=== PATIENT | female | born 1985 | race Caucasian/White ===

== ENCOUNTER 2016-08-05 17:55 | Emergency (ER) | payer MEDICAID, OTHER ==
[~2016-08-05] VITALS: Ht 165.1 cm; Wt 88.0 kg
[~2016-08-05 17:55] MED LIST: LITH300T3 PO; SERT100T12 PO
[2016-08-05] MEDS ORDERED: LURA40 PO (18:04)
[2016-08-05 18:59] LABS: BASOPHILS % (AUTO) 0.8 % (0.0-2.0); EOSINOPHILS % (AUTO) 0.7 % (1.0-6.0); HEMATOCRIT 39.2 % (36-46); HEMOGLOBIN 12.9 g/dL (12.0-16.0); LYMPHOCYTES # (AUTO) 2.2 K/uL (1.0-4.8); LYMPHOCYTES % (AUTO) 19.8 % (22.0-44.0); MEAN CORPUSCULAR HEMOGLOBIN 30.1 pg (26.0-34.0); MEAN CORPUSCULAR HGB CONC 32.8 G/dL (31.0-37.0); MEAN CORPUSCULAR VOLUME 92 fL (80-100); MONOCYTES # (AUTO) 0.6 K/uL (0.1-1.0); MONOCYTES % (AUTO) 5.8 % (2.0-9.0); NEUTROPHILS # (AUTO) 8.1 K/uL (1.8-7.7); NEUTROPHILS % (AUTO) 72.9 % (40.0-70.0); PLATELET COUNT (AUTO) 354 K/uL (150-450); RED BLOOD CELL COUNT(AUTO) 4.27 MIL/uL (4.00-5.20); RED CELL DISTRIBUTION WIDTH 13.5 % (11.5-14.5); WHITE BLOOD COUNT (AUTO) 11.1 K/uL (4.5-11.0)
[2016-08-05 19:09] LABS: ANION GAP 8 mmol/L (8-16); CALCIUM, TOTAL 8.3 mg/dL (8.8-10.5); CARBON DIOXIDE 27 mmol/L (22-29); CHLORIDE 103 mmol/L (98-107); CREATININE 0.74 mg/dL (0.60-1.30); GLOMERULAR FILTR. RATE CALC > 60 mL/min (>60); POTASSIUM 3.8 mmol/L (3.5-5.1); SODIUM SERUM 138 mmol/L (136-145); UREA NITROGEN, BLOOD 6 mg/dL (7-18)
[2016-08-05 19:16] LABS: ALANINE AMINOTRANSFERASE 13 U/L (12-78); ALBUMIN 3.6 g/dL (3.4-5.0); ASPARTATE AMINOTRANSFERASE 12 U/L (15-37); BILIRUBIN,TOTAL 0.6 mg/dL (0.1-1.0); TOTAL PROTEIN, SERUM 7.6 g/dL (6.4-8.2)
[2016-08-05 20:44] VITALS: BP 121/67
== END 2016-08-05 20:57 | disposition home or self-care (01) ==
LOC: EMS 17:56
DX: F31.9 Bipolar disorder, unspecified (principal); J45.909 Unspecified asthma, uncomplicated
CPT/HCPCS: 36415; 80053; 80307; 85025; 99285; G0480

== ENCOUNTER 2016-11-27 16:36 | Inpatient (IN) | payer MEDICAID, OTHER ==
[~2016-11-27] VITALS: Ht 157.5 cm; Wt 88.4 kg
[~2016-11-27 16:36] MED LIST changes: +LURA40 PO
[2016-11-27] MEDS ORDERED: OXCA300T PO (16:50)
[2016-11-27] MEDS ORDERED: LEVO1TAB58 PO (16:50)
[2016-11-27] MEDS ORDERED: SPIR25 PO (16:50)
[2016-11-27 17:25] LABS: BASOPHILS % (AUTO) 1.1 % (0.0-2.0); EOSINOPHILS # (AUTO) 0.06 K/uL (0.00-0.70); EOSINOPHILS % (AUTO) 0.61 % (1.0-6.0); HEMATOCRIT 38.1 % (36-46); HEMOGLOBIN 12.5 g/dL (12.0-16.0); LYMPHOCYTES # (AUTO) 1.7 K/uL (1.0-4.8); LYMPHOCYTES % (AUTO) 18.7 % (22.0-44.0); MEAN CORPUSCULAR HEMOGLOBIN 30.3 pg (26.0-34.0); MEAN CORPUSCULAR HGB CONC 32.8 G/dL (31.0-37.0); MEAN CORPUSCULAR VOLUME 92 fL (80-100); MONOCYTES # (AUTO) 0.6 K/uL (0.1-1.0); MONOCYTES % (AUTO) 6.8 % (2.0-9.0); NEUTROPHILS # (AUTO) 6.6 K/uL (1.8-7.7); NEUTROPHILS % (AUTO) 72.9 % (40.0-70.0); PLATELET COUNT (AUTO) 283 K/uL (150-450); RED BLOOD CELL COUNT(AUTO) 4.13 MIL/uL (4.00-5.20); RED CELL DISTRIBUTION WIDTH 13.4 % (11.5-14.5); WHITE BLOOD COUNT (AUTO) 9.1 K/uL (4.5-11.0)
[2016-11-27 17:26] LABS: ANION GAP 9 mmol/L (8-16); CALCIUM, TOTAL 8.5 mg/dL (8.8-10.5); CARBON DIOXIDE 25 mmol/L (22-29); CHLORIDE 101 mmol/L (98-107); CREATININE 0.82 mg/dL (0.60-1.30); GLOMERULAR FILTR. RATE CALC > 60 mL/min (>60); POTASSIUM 3.7 mmol/L (3.5-5.1); SODIUM SERUM 135 mmol/L (136-145); UREA NITROGEN, BLOOD 11 mg/dL (7-18)
[2016-11-27 17:32] LABS: ALANINE AMINOTRANSFERASE 27 U/L (12-78); ALBUMIN 3.6 g/dL (3.4-5.0); ASPARTATE AMINOTRANSFERASE 23 U/L (15-37); BILIRUBIN,TOTAL 0.3 mg/dL (0.1-1.0); TOTAL PROTEIN, SERUM 7.8 g/dL (6.4-8.2)
[2016-11-27] MEDS ORDERED: ZOLPIDEM TARTRATE 10 MG TABLET PO PRN (19:15)
[2016-11-27] MEDS ORDERED: LORazepam 2 MG TABLET PO PRN (19:15)
[2016-11-27] MEDS ORDERED: HALOPERIDOL 5 MG TABLET PO PRN (19:15)
[2016-11-27 19:33] LABS: CHOL/HDL RATIO 5.1 (3.9-5.7)
[2016-11-27 20:29] VITALS: BP 124/73
[2016-11-28] MEDS ORDERED: ALBUTEROL SULFATE HFA 90 MCG/PUFF 8 GM INHALER IH PRN (08:15)
[2016-11-28] MEDS ORDERED: LOPERAMIDE HCL 2 MG CAPSULE PO PRN (08:15)
[2016-11-28] MEDS ORDERED: MAG HYDROX/AL HYDROX/SIMETH ES 30 ML SUSPENSION UDCUP PO PRN (08:15)
[2016-11-28] MEDS ORDERED: ONDANSETRON HCL 4 MG TABLET PO PRN (08:15)
[2016-11-28] MEDS ORDERED: BENZOCAINE/MENTHOL LOZENGE MM PRN (08:15)
[2016-11-28] MEDS ORDERED: MAGNESIUM HYDROXIDE SUSPENSION 30 ML UDCUP PO PRN (08:15)
[2016-11-28] MEDS ORDERED: IBUPROFEN 600 MG TABLET PO PRN (08:15)
[2016-11-28] MEDS ORDERED: ACETAMINOPHEN 325 MG TABLET PO PRN (08:15)
[2016-11-28] MEDS ORDERED: CloNIDine HCL 0.1 MG TABLET PO PRN (08:15)
[2016-11-28] MEDS ORDERED: BACITRACIN 28.4 GM OINTMENT TP PRN (08:15)
[2016-11-28] MEDS ORDERED: PETROLATUM,WHITE 71 GM JELLY TP PRN (08:15)
[2016-11-28] MEDS ORDERED: BENZOCAINE/MENTHOL LOZENGE [8 LOZENGES/PACKET] MM PRN (08:30)
[2016-11-28 09:46] VITALS: BP 115/75
[2016-11-28] MEDS: FISH OIL/OMEGA-3 FATTY ACIDS 500 MG CAPSULE PO SCH (11:23)
[2016-11-28] MEDS: SPIRONOLACTONE 25 MG TABLET PO SCH (11:23)
[2016-11-28 16:15] VITALS: BP 114/76
[2016-11-29 06:51] LABS: THYROID STIMULATING HORMONE 2.62 uIU/mL (0.36-3.74)
[2016-11-29 08:36] VITALS: BP 124/72
[2016-11-29] MEDS: CITALOPRAM HYDROBROMIDE 20 MG TABLET PO SCH (09:18)
[2016-11-29] MEDS: SPIRONOLACTONE 25 MG TABLET PO SCH (09:19)
[2016-11-29] MEDS: FISH OIL/OMEGA-3 FATTY ACIDS 500 MG CAPSULE PO SCH (09:19)
[2016-11-29 16:15] VITALS: BP 112/78
[2016-11-30] MEDS ORDERED: CITA20TA9 PO (08:02)
[2016-11-30] MEDS ORDERED: OMEG-12 PO (08:04)
[2016-11-30] MEDS: FISH OIL/OMEGA-3 FATTY ACIDS 500 MG CAPSULE PO SCH (09:02)
[2016-11-30] MEDS: SPIRONOLACTONE 25 MG TABLET PO SCH (09:02)
[2016-11-30] MEDS: CITALOPRAM HYDROBROMIDE 20 MG TABLET PO SCH (09:03)
== END 2016-11-30 10:30 | disposition home or self-care (01) | DRG 754 ==
LOC: EMS 16:39 → 3EI 20:02
PROVIDERS: ADMIT Psychiatry & Neurology Psychiatry; ATTEND Psychiatry & Neurology Psychiatry
DX: F32.9 Major depressive disorder, single episode, unspecified (principal); E87.1 Hypo-osmolality and hyponatremia; R45.851 Suicidal ideations; E83.51 Hypocalcemia; F10.10 Alcohol abuse, uncomplicated; E78.5 Hyperlipidemia, unspecified; E66.9 Obesity, unspecified; J45.909 Unspecified asthma, uncomplicated; N92.6 Irregular menstruation, unspecified; L68.0 Hirsutism
CPT/HCPCS: 82306; 84295; 84443; 99285; G0480

== ENCOUNTER 2018-02-09 14:27 | Inpatient (IN) | payer MEDICAID ==
[~2018-02-09] VITALS: Ht 165.1 cm; Wt 78.9 kg
[~2018-02-09 14:27] MED LIST changes: +CITA-106 PO; -LITH300T3 PO; -LURA40 PO; +OMEG-12 PO; -SERT100T12 PO; +SPIR25 PO
[2018-02-09] MEDS ORDERED: NATA300V2 IV (14:40)
[2018-02-09] MEDS ORDERED: GABA-529 PO (14:40)
[2018-02-09] MEDS ORDERED: FLUO-191 PO (14:40)
[2018-02-09 15:06] LABS: BASOPHILS % (AUTO) 0.7 % (0.0-2.0); EOSINOPHILS % (AUTO) 2.4 % (1.0-6.0); HEMATOCRIT 38.8 % (36-46); HEMOGLOBIN 13.2 g/dL (12.0-16.0); LYMPHOCYTES # (AUTO) 3.6 K/uL (1.0-4.8); LYMPHOCYTES % (AUTO) 38.6 % (22.0-44.0); MEAN CORPUSCULAR HEMOGLOBIN 30.5 pg (26.0-34.0); MEAN CORPUSCULAR HGB CONC 33.9 G/dL (31.0-37.0); MEAN CORPUSCULAR VOLUME 90 fL (80-100); MONOCYTES # (AUTO) 0.6 K/uL (0.1-1.0); MONOCYTES % (AUTO) 6.8 % (2.0-9.0); NEUTROPHILS # (AUTO) 4.9 K/uL (1.8-7.7); NEUTROPHILS % (AUTO) 51.5 % (40.0-70.0); PLATELET COUNT (AUTO) 364 K/uL (150-450); RED BLOOD CELL COUNT(AUTO) 4.31 MIL/uL (4.00-5.20); RED CELL DISTRIBUTION WIDTH 13.2 % (11.5-14.5)
[2018-02-09 15:14] LABS: APPEARANCE,URINE CLEAR (CLEAR); BILIRUBIN,URINE NEGATIVE (NEGATIVE); GLUCOSE, URINE (UA) NEGATIVE (NEGATIVE); KETONES,URINE NEGATIVE (NEGATIVE); LEUKOCYTE ESTERASE ,URINE NEGATIVE (NEGATIVE); NITRATE,URINE NEGATIVE (NEGATIVE); OCCULT BLOOD,URINE NEGATIVE (NEGATIVE); PROTEIN,URINE NEGATIVE (NEGATIVE); UROBILINOGEN,URINE 0.2 mg/dL (<=1.0)
[2018-02-09 15:15] LABS: ANION GAP 9 mmol/L (8-16); CALCIUM, TOTAL 8.9 mg/dL (8.8-10.5); CARBON DIOXIDE 27 mmol/L (22-29); CHLORIDE 104 mmol/L (98-107); CREATININE 0.76 mg/dL (0.60-1.30); GLOMERULAR FILTR. RATE CALC > 60 mL/min (>60); GLUCOSE,RANDOM 101 mg/dL (70-110); POTASSIUM 3.9 mmol/L (3.5-5.1); SODIUM SERUM 140 mmol/L (136-145); UREA NITROGEN, BLOOD 7 mg/dL (7-18)
[2018-02-09 15:18] LABS: AMPHET/METH SCREEN,URINE NEGATIVE (NEGATIVE); BARBITURATE SCREEN, URINE NEGATIVE (NEGATIVE); BENZODIAZEPINES SCREEN,URINE NEGATIVE (NEGATIVE); CANNABINOID SCREEN,URINE NEGATIVE (NEGATIVE); COCAINE SCREEN,URINE NEGATIVE (NEGATIVE); METHADONE SCREEN, URINE NEGATIVE (NEGATIVE); OPIATE SCREEN,URINE NEGATIVE (NEGATIVE)
[2018-02-09 15:21] LABS: ALANINE AMINOTRANSFERASE 14 U/L (12-78); ALBUMIN 3.8 g/dL (3.4-5.0); ALKALINE PHOSPHATASE 67 U/L (46-116); ASPARTATE AMINOTRANSFERASE 13 U/L (15-37); BILIRUBIN,TOTAL 0.7 mg/dL (0.1-1.0); TOTAL PROTEIN, SERUM 7.7 g/dL (6.4-8.2)
[2018-02-09 15:25] LABS: PHENCYCLIDINE SCREEN,URINE NEGATIVE (NEGATIVE)
[2018-02-09] MEDS ORDERED: HALOPERIDOL 5 MG TABLET PO PRN (18:00)
[2018-02-09] MEDS ORDERED: ZOLPIDEM TARTRATE 10 MG TABLET PO PRN (18:00)
[2018-02-09] MEDS ORDERED: PNEUMOCOCCAL VACCINE POLYVALENT 0.5 ML VIAL [PPSV23] IM ONE (20:45)
[2018-02-09] MEDS ORDERED: PETROLATUM,WHITE 71 GM JELLY TP PRN (21:00)
[2018-02-09] MEDS ORDERED: ACETAMINOPHEN 650 MG/20.3 ML SOLUTION UDCUP PO PRN (21:00)
[2018-02-09] MEDS ORDERED: MAGNESIUM HYDROXIDE SUSPENSION 30 ML UDCUP PO PRN (21:00)
[2018-02-09] MEDS ORDERED: ALBUTEROL SULFATE HFA 90 MCG/PUFF 8 GM INHALER IH PRN (21:00)
[2018-02-09] MEDS ORDERED: DOCUSATE SODIUM 100 MG CAPSULE PO PRN (21:00)
[2018-02-09] MEDS ORDERED: MAG HYDROX/AL HYDROX/SIMETH ES 30 ML SUSPENSION UDCUP PO PRN (21:00)
[2018-02-09] MEDS ORDERED: ACETAMINOPHEN 325 MG TABLET PO PRN (21:45)
[2018-02-10] MEDS: LORazepam 2 MG TABLET PO PRN ×2 (00:15→22:31)
[2018-02-10 06:10] VITALS: BP 108/60
[2018-02-10 08:05] VITALS: BP 102/66
[2018-02-10 08:42] LABS: CHOL/HDL RATIO 5.3 (3.9-5.7); FREE T4 (FREE THYROXINE) 0.79 ng/dL (0.76-1.46); THYROID STIMULATING HORMONE 1.38 uIU/mL (0.36-3.74)
[2018-02-10] MEDS ORDERED: SUMAtriptan SUCCINATE 25 MG TABLET PO PRN (10:00)
[2018-02-10] MEDS: FLUoxetine HCL 20 MG CAPSULE PO SCH (10:01)
[2018-02-10 17:12] VITALS: BP 111/72
[2018-02-11 04:50] VITALS: BP 111/68
[2018-02-11 08:29] VITALS: BP 104/71
[2018-02-11] MEDS: FLUoxetine HCL 20 MG CAPSULE PO SCH (09:47)
[2018-02-11 16:12] VITALS: BP 122/83
[2018-02-12 06:33] VITALS: BP 126/73
[2018-02-12 08:13] VITALS: BP 106/67
[2018-02-12] MEDS: FLUoxetine HCL 20 MG CAPSULE PO SCH (09:35)
[2018-02-12 16:05] VITALS: BP 115/76
[2018-02-12] MEDS: LORazepam 2 MG TABLET PO PRN (21:49)
[2018-02-13] VITALS: BP 102/64
[2018-02-13 08:27] VITALS: BP_SYST 104; BP_SYST 96; BP_DIAS 54; BP_DIAS 64
[2018-02-13] MEDS: FLUoxetine HCL 20 MG CAPSULE PO SCH (10:02)
[2018-02-13 16:24] VITALS: BP 101/61
[2018-02-14 04:20] VITALS: BP 116/75
[2018-02-14] MEDS ORDERED: FLUO20SO9 PO (08:07)
[2018-02-14] MEDS ORDERED: FLUO-191 PO ×2 (08:16→08:17)
[2018-02-14 08:46] VITALS: BP 106/66
[2018-02-14] MEDS: FLUoxetine HCL 20 MG CAPSULE PO SCH (08:46)
== END 2018-02-14 13:20 | disposition home or self-care (01) | DRG 750 ==
LOC: EMS 14:28 → B2S 18:47
PROVIDERS: ADMIT Psychiatry & Neurology Psychiatry; ATTEND Psychiatry & Neurology Psychiatry
PROC: 3E0234Z Introduction of Serum, Toxoid and Vaccine into Muscle, Percutaneous Approach (ICD-10-PCS; principal; 2018-02-09)
DX: F25.9 Schizoaffective disorder, unspecified (principal); G35 Multiple sclerosis; R45.851 Suicidal ideations; F31.9 Bipolar disorder, unspecified; F41.9 Anxiety disorder, unspecified; G43.909 Migraine, unspecified, not intractable, without status migrainosus; J45.909 Unspecified asthma, uncomplicated; Z91.14 Patient's other noncompliance with medication regimen; Z23 Encounter for immunization; Z79.899 Other long term (current) drug therapy
CPT/HCPCS: 84439; 84443; 90471; 99285; G0480

== ENCOUNTER 2018-03-14 12:15 | Inpatient (IN) | payer MEDICAID ==
[~2018-03-14] VITALS: Ht 162.6 cm; Wt 83.1 kg
[~2018-03-14 12:15] MED LIST changes: -CITA-106 PO; +FLUO-191 PO; -OMEG-12 PO; -SPIR25 PO
[2018-03-14 12:28] VITALS: BP 102/67
[2018-03-14] MEDS ORDERED: HALOPERIDOL 5 MG TABLET PO PRN (13:15)
[2018-03-14] MEDS ORDERED: LORazepam 2 MG TABLET PO PRN (13:15)
[2018-03-14] MEDS ORDERED: ZOLPIDEM TARTRATE 10 MG TABLET PO PRN (13:15)
[2018-03-14] MEDS ORDERED: GABA-531 PO (13:17)
[2018-03-14 15:40] VITALS: BP 130/71
[2018-03-14 16:05] VITALS: BP 110/68
[2018-03-15 01:12] VITALS: BP 105/75
[2018-03-15 08:26] LABS: BASOPHILS % (AUTO) 0.6 % (0.0-2.0); EOSINOPHILS % (AUTO) 1.7 % (1.0-6.0); HEMOGLOBIN 12.7 g/dL (12.0-16.0); LYMPHOCYTES # (AUTO) 2.8 K/uL (1.0-4.8); LYMPHOCYTES % (AUTO) 31.1 % (22.0-44.0); MEAN CORPUSCULAR HEMOGLOBIN 30.3 pg (26.0-34.0); MEAN CORPUSCULAR HGB CONC 34.4 G/dL (31.0-37.0); MEAN CORPUSCULAR VOLUME 88 fL (80-100); MONOCYTES # (AUTO) 0.5 K/uL (0.1-1.0); MONOCYTES % (AUTO) 5.7 % (2.0-9.0); NEUTROPHILS # (AUTO) 5.6 K/uL (1.8-7.7); NEUTROPHILS % (AUTO) 60.9 % (40.0-70.0); PLATELET COUNT (AUTO) 319 K/uL (150-450); RED CELL DISTRIBUTION WIDTH 13.2 % (11.5-14.5)
[2018-03-15 08:40] VITALS: BP 112/71
[2018-03-15 08:49] LABS: HEMOGLOBIN A1C 5.2 % (4.5-6.2)
[2018-03-15 09:02] LABS: ALANINE AMINOTRANSFERASE 13 U/L (12-78); ALBUMIN 3.5 g/dL (3.4-5.0); ALKALINE PHOSPHATASE 60 U/L (46-116); ANION GAP 8 mmol/L (8-16); ASPARTATE AMINOTRANSFERASE 11 U/L (15-37); BILIRUBIN,TOTAL 0.3 mg/dL (0.1-1.0); CALCIUM, TOTAL 8.6 mg/dL (8.8-10.5); CARBON DIOXIDE 28 mmol/L (22-29); CHLORIDE 101 mmol/L (98-107); CHOLESTEROL 166 mg/dL (131-200); CREATININE 0.75 mg/dL (0.60-1.30); FREE T4 (FREE THYROXINE) 0.71 ng/dL (0.76-1.46); GLOMERULAR FILTR. RATE CALC > 60 mL/min (>60); GLUCOSE,RANDOM 108 mg/dL (70-110); HCG,QUANTITATIVE < 1 mIU/mL (0-6); HDL CHOLESTEROL 33 mg/dL (40-60); LDL CHOL (CALC.) 104 mg/dL (0-130); POTASSIUM 4.1 mmol/L (3.5-5.1); SODIUM SERUM 137 mmol/L (136-145); THYROID STIMULATING HORMONE 3.19 uIU/mL (0.36-3.74); TOTAL PROTEIN, SERUM 7.3 g/dL (6.4-8.2); TRIGLYCERIDES 145 mg/dL (15-150); UREA NITROGEN, BLOOD 13 mg/dL (7-18)
[2018-03-15] MEDS: FLUoxetine HCL 20 MG CAPSULE PO SCH (09:10)
[2018-03-15] MEDS: GABAPENTIN 300 MG CAPSULE PO SCH ×3 (09:24→16:38)
[2018-03-15 16:24] VITALS: BP 116/73
[2018-03-15] MEDS ORDERED: CloNIDine HCL 0.1 MG TABLET PO PRN (20:45)
[2018-03-15] MEDS ORDERED: MAGNESIUM HYDROXIDE SUSPENSION 30 ML UDCUP PO PRN (20:45)
[2018-03-15] MEDS ORDERED: ONDANSETRON HCL 4 MG TABLET PO PRN (20:45)
[2018-03-15] MEDS ORDERED: BENZOCAINE/MENTHOL LOZENGE MM PRN (20:45)
[2018-03-15] MEDS ORDERED: IBUPROFEN 600 MG TABLET PO PRN (20:45)
[2018-03-15] MEDS ORDERED: OMEPRAZOLE 20 MG CAPSULE PO PRN (20:45)
[2018-03-15] MEDS ORDERED: LOPERAMIDE HCL 2 MG CAPSULE PO PRN (20:45)
[2018-03-15] MEDS ORDERED: ACETAMINOPHEN 325 MG TABLET PO PRN (20:45)
[2018-03-15] MEDS ORDERED: DOCUSATE SODIUM 100 MG CAPSULE PO PRN (20:45)
[2018-03-15] MEDS ORDERED: PETROLATUM,WHITE 71 GM JELLY TP PRN (20:45)
[2018-03-15] MEDS ORDERED: MAG HYDROX/AL HYDROX/SIMETH ES 30 ML SUSPENSION UDCUP PO PRN (20:45)
[2018-03-15] MEDS ORDERED: ALBUTEROL SULFATE HFA 90 MCG/PUFF 8 GM INHALER IH PRN (20:45)
[2018-03-15] MEDS ORDERED: BACITRACIN 28.4 GM OINTMENT TP PRN (20:45)
[2018-03-16 07:07] VITALS: BP 112/80
[2018-03-16] MEDS: FLUoxetine HCL 20 MG CAPSULE PO SCH (08:28)
[2018-03-16] MEDS: GABAPENTIN 300 MG CAPSULE PO SCH ×3 (08:28→16:48)
[2018-03-16 08:35] VITALS: BP 104/65
[2018-03-16 08:42] LABS: AMPHET/METH SCREEN,URINE NEGATIVE (NEGATIVE); BARBITURATE SCREEN, URINE NEGATIVE (NEGATIVE); BENZODIAZEPINES SCREEN,URINE NEGATIVE (NEGATIVE); CANNABINOID SCREEN,URINE NEGATIVE (NEGATIVE); COCAINE SCREEN,URINE NEGATIVE (NEGATIVE); METHADONE SCREEN, URINE NEGATIVE (NEGATIVE); OPIATE SCREEN,URINE NEGATIVE (NEGATIVE)
[2018-03-16 08:43] LABS: PHENCYCLIDINE SCREEN,URINE NEGATIVE (NEGATIVE)
[2018-03-16] MEDS ORDERED: GABAPENTIN 300 MG CAPSULE PO SCH (09:00)
[2018-03-16 09:40] LABS: APPEARANCE,URINE CLEAR (CLEAR); BILIRUBIN,URINE NEGATIVE (NEGATIVE); GLUCOSE, URINE (UA) NEGATIVE (NEGATIVE); KETONES,URINE NEGATIVE (NEGATIVE); LEUKOCYTE ESTERASE ,URINE NEGATIVE (NEGATIVE); NITRATE,URINE NEGATIVE (NEGATIVE); OCCULT BLOOD,URINE NEGATIVE (NEGATIVE); PH,URINE 6.5 (5.0-8.0); PROTEIN,URINE NEGATIVE (NEGATIVE); UROBILINOGEN,URINE 0.2 mg/dL (<=1.0)
[2018-03-16 16:17] VITALS: BP 116/75
[2018-03-16] MEDS: DIVALPROEX SODIUM 500 MG DR TABLET PO SCH (20:03)
[2018-03-17] MEDS ORDERED: LORATADINE 10 MG TABLET PO PRN (08:45)
[2018-03-17 08:51] VITALS: BP 98/60
[2018-03-17] MEDS: GABAPENTIN 300 MG CAPSULE PO SCH ×3 (09:07→16:54)
[2018-03-17] MEDS: DIVALPROEX SODIUM 500 MG DR TABLET PO SCH ×2 (09:07→16:47)
[2018-03-17 17:17] VITALS: BP 116/73
[2018-03-18 07:00] VITALS: BP 108/64
[2018-03-18 08:48] VITALS: BP 122/78
[2018-03-18] MEDS: DIVALPROEX SODIUM 500 MG DR TABLET PO SCH (09:09)
[2018-03-18] MEDS: GABAPENTIN 300 MG CAPSULE PO SCH ×2 (09:09→12:58)
[2018-03-18] MEDS ORDERED: GABA-531 PO (10:42)
[2018-03-18] MEDS ORDERED: DIVA-76 PO (10:42)
== END 2018-03-18 13:30 | disposition home or self-care (01) | DRG 750 ==
LOC: B3A 13:13
PROVIDERS: ADMIT Psychiatry & Neurology Psychiatry; ATTEND Psychiatry & Neurology Psychiatry
DX: F25.9 Schizoaffective disorder, unspecified (principal); G35 Multiple sclerosis; R45.851 Suicidal ideations; F41.9 Anxiety disorder, unspecified; G43.909 Migraine, unspecified, not intractable, without status migrainosus; G47.00 Insomnia, unspecified; J45.909 Unspecified asthma, uncomplicated; K59.00 Constipation, unspecified; R21 Rash and other nonspecific skin eruption; Z28.21 Immunization not carried out because of patient refusal; Z79.899 Other long term (current) drug therapy; Z91.018 Allergy to other foods
CPT/HCPCS: 80307; 83036; 84439; 84443; 87081; 90686

== ENCOUNTER 2020-12-30 17:18 | Inpatient (IN) | payer MEDICAID ==
[~2020-12-30] VITALS: Ht 162.6 cm; Wt 81.5 kg
[~2020-12-30 17:18] MED LIST changes: +DIVA-111 PO; -FLUO-191 PO; +GABA-1181 PO
[2020-12-30 20:07] LABS: GLUCOMETER DEV NAME(LOC) POC.BV
[2020-12-30] MEDS ORDERED: METF-960 PO (20:26)
[2020-12-30] MEDS ORDERED: ACYC200C24 PO (20:28)
[2020-12-30] MEDS ORDERED: MAGNESIUM HYDROXIDE SUSPENSION 30 ML UDCUP PO PRN (21:15)
[2020-12-30] MEDS ORDERED: LOPERAMIDE HCL 2 MG CAPSULE PO PRN (21:15)
[2020-12-30] MEDS ORDERED: TUBERCULIN, PURIFIED PROTEIN DERIVATIVE 5 TU/0.1 ML SYRINGE ID ONE (21:15)
[2020-12-30] MEDS ORDERED: HydrOXYzine PAMOATE 50 MG CAPSULE PO PRN (21:15)
[2020-12-30] MEDS ORDERED: OLANZapine 5 MG RAPDIS TABLET PO PRN (21:15)
[2020-12-30] MEDS ORDERED: MAG HYDROX/AL HYDROX/SIMETH ES 30 ML SUSPENSION UDCUP PO PRN (21:15)
[2020-12-30] MEDS ORDERED: PROMETHAZINE HCL 25 MG TABLET PO PRN (21:15)
[2020-12-30] MEDS ORDERED: ACETAMINOPHEN 325 MG TABLET PO PRN (21:15)
[2020-12-30] MEDS ORDERED: GuaiFENesin/D-METHORPHAN [SUGAR-FREE] 200-20MG/10 ML SYRUP UDCUP PO PRN (21:15)
[2020-12-30] MEDS: ZOLPIDEM TARTRATE 10 MG TABLET PO PRN (21:51)
[2020-12-30] MEDS: LORazepam 2 MG TABLET PO PRN (21:51)
[2020-12-30 21:54] VITALS: BP 109/79
[2020-12-30 22:21] LABS: GLUCOMETER DEV NAME(LOC) BV3S.; GLUCOSE,POINT OF CARE 88 MG/DL (70-110)
[2020-12-31 00:57] VITALS: BP 100/65
[2020-12-31 07:41] LABS: BASOPHILS % (AUTO) 0.4 % (0.0-2.0); EOSINOPHILS % (AUTO) 0.8 % (1.0-6.0); HEMATOCRIT 39.7 % (36-46); HEMOGLOBIN 13.3 g/dL (12.0-16.0); LYMPHOCYTES # (AUTO) 1.9 K/uL (1.0-4.8); LYMPHOCYTES % (AUTO) 22.9 % (22.0-44.0); MEAN CORPUSCULAR HEMOGLOBIN 31.4 pg (26.0-34.0); MEAN CORPUSCULAR HGB CONC 33.6 G/dL (31.0-37.0); MEAN CORPUSCULAR VOLUME 94 fL (80-100); MONOCYTES # (AUTO) 0.6 K/uL (0.1-1.0); MONOCYTES % (AUTO) 6.8 % (2.0-9.0); NEUTROPHILS # (AUTO) 5.7 K/uL (1.8-7.7); NEUTROPHILS % (AUTO) 69.1 % (40.0-70.0); PLATELET COUNT (AUTO) 307 K/uL (150-450); RED BLOOD CELL COUNT(AUTO) 4.25 MIL/uL (4.00-5.20); RED CELL DISTRIBUTION WIDTH 13.3 % (11.5-14.5)
[2020-12-31 08:09] LABS: ALANINE AMINOTRANSFERASE 16 U/L (12-78); ALBUMIN 3.6 g/dL (3.4-5.0); ALKALINE PHOSPHATASE 57 U/L (46-116); ANION GAP 8 mmol/L (8-16); ASPARTATE AMINOTRANSFERASE 11 U/L (15-37); BILIRUBIN,TOTAL 0.3 mg/dL (0.1-1.0); CALCIUM, TOTAL 8.7 mg/dL (8.8-10.5); CARBON DIOXIDE 27 mmol/L (22-29); CHLORIDE 104 mmol/L (98-107); CHOL/HDL RATIO 5.8 (3.9-5.7); CHOLESTEROL 186 mg/dL (131-200); CREATININE 0.66 mg/dL (0.60-1.30); FREE T4 (FREE THYROXINE) 1.05 ng/dL (0.76-1.46); GLOMERULAR FILTR. RATE CALC > 60 mL/min (>60); GLUCOSE,RANDOM 104 mg/dL (70-110); HCG,QUANTITATIVE < 1 mIU/mL (0-6); HDL CHOLESTEROL 32 mg/dL (40-60); LDL CHOL (CALC.) 133 mg/dL (0-130); POTASSIUM 4.1 mmol/L (3.5-5.1); SODIUM SERUM 139 mmol/L (136-145); THYROID STIMULATING HORMONE 3.26 uIU/mL (0.36-3.74); TOTAL PROTEIN, SERUM 7.6 g/dL (6.4-8.2); TRIGLYCERIDES 107 mg/dL (15-150); UREA NITROGEN, BLOOD 15 mg/dL (7-18)
[2020-12-31 08:16] VITALS: BP 122/79
[2020-12-31] MEDS: FOLIC ACID 1 MG TABLET PO SCH (09:01)
[2020-12-31] MEDS: MULTIVITAMINS WITH MINERALS, THERAPEUTIC TABLET PO SCH (09:01)
[2020-12-31] MEDS: AMMONIUM LACTATE 12% 225 GM LOTION TP SCH ×2 (09:01→17:09)
[2020-12-31] MEDS: OMEGA-3/DHA/EPA/FISH OIL 1,000 MG CAPSULE PO SCH (09:02)
[2020-12-31] MEDS: THIAMINE 100 MG TABLET PO SCH ×2 (09:02→16:35)
[2020-12-31] MEDS: FLUoxetine HCL 20 MG CAPSULE PO SCH (09:02)
[2020-12-31] MEDS: LORazepam 2 MG TABLET PO PRN (09:02)
[2020-12-31] MEDS ORDERED: DIVA-112 PO (15:59)
[2020-12-31] MEDS ORDERED: LURASIDONE HCL 20 MG TABLET PO PRN (16:00)
[2020-12-31 16:04] VITALS: BP 103/68
[2020-12-31] MEDS ORDERED: LURASIDONE HCL 40 MG TABLET PO SCH (17:00)
[2020-12-31] MEDS: GABAPENTIN 300 MG CAPSULE PO SCH (20:16)
[2020-12-31] MEDS: MELATONIN 5 MG TABLET PO SCH (20:20)
[2020-12-31] MEDS ORDERED: OLANZapine 5 MG RAPDIS TABLET PO SCH (21:00)
[2020-12-31] MEDS: ACYCLOVIR 200 MG CAPSULE PO SCH (21:13)
[2021-01-01 00:28] VITALS: BP 105/62
[2021-01-01 08:29] VITALS: BP 101/70
[2021-01-01] MEDS: OMEGA-3/DHA/EPA/FISH OIL 1,000 MG CAPSULE PO SCH (09:07)
[2021-01-01] MEDS: FLUoxetine HCL 20 MG CAPSULE PO SCH (09:07)
[2021-01-01] MEDS: GABAPENTIN 300 MG CAPSULE PO SCH ×2 (09:07→16:56)
[2021-01-01] MEDS: FOLIC ACID 1 MG TABLET PO SCH (09:07)
[2021-01-01] MEDS: MULTIVITAMINS WITH MINERALS, THERAPEUTIC TABLET PO SCH (09:07)
[2021-01-01] MEDS: THIAMINE 100 MG TABLET PO SCH ×2 (09:07→16:57)
[2021-01-01] MEDS: AMANTADINE HCL 100 MG CAPSULE PO SCH ×2 (09:07→16:56)
[2021-01-01] MEDS: ACYCLOVIR 200 MG CAPSULE PO SCH ×2 (09:08→16:57)
[2021-01-01] MEDS: AMMONIUM LACTATE 12% 225 GM LOTION TP SCH ×2 (09:08→16:57)
[2021-01-01] MEDS: CHOLECALCIFEROL (VIT D3) 5,000 [125 MCG] UNITS CAPSULE PO SCH (09:08)
[2021-01-01] MEDS ORDERED: MetFORMIN HCL 500 MG TABLET PO SCH ×3 (14:00→21:00)
[2021-01-01 16:19] VITALS: BP 116/75
[2021-01-01] MEDS: MetFORMIN HCL 500 MG TABLET PO SCH (16:56)
[2021-01-01] MEDS ORDERED: LURASIDONE HCL 60 MG TABLET PO SCH (17:00)
[2021-01-01] MEDS: MELATONIN 5 MG TABLET PO SCH (20:55)
[2021-01-02 01:35] VITALS: BP 110/62
[2021-01-02] MEDS: LORazepam 2 MG TABLET PO PRN (04:17)
[2021-01-02 08:31] VITALS: BP 100/69
[2021-01-02] MEDS: FLUoxetine HCL 20 MG CAPSULE PO SCH (08:52)
[2021-01-02] MEDS: FOLIC ACID 1 MG TABLET PO SCH (08:52)
[2021-01-02] MEDS: GABAPENTIN 300 MG CAPSULE PO SCH (08:52)
[2021-01-02] MEDS: CHOLECALCIFEROL (VIT D3) 5,000 [125 MCG] UNITS CAPSULE PO SCH (08:53)
[2021-01-02] MEDS: THIAMINE 100 MG TABLET PO SCH ×2 (08:53→16:58)
[2021-01-02] MEDS: AMANTADINE HCL 100 MG CAPSULE PO SCH (08:53)
[2021-01-02] MEDS: ACYCLOVIR 200 MG CAPSULE PO SCH ×2 (08:53→16:59)
[2021-01-02] MEDS: OMEGA-3/DHA/EPA/FISH OIL 1,000 MG CAPSULE PO SCH (08:53)
[2021-01-02] MEDS: MULTIVITAMINS WITH MINERALS, THERAPEUTIC TABLET PO SCH (08:53)
[2021-01-02] MEDS: AMMONIUM LACTATE 12% 225 GM LOTION TP SCH ×2 (09:06→16:59)
[2021-01-02 16:25] VITALS: BP 111/67
[2021-01-02] MEDS: MetFORMIN HCL 500 MG TABLET PO SCH (16:58)
[2021-01-02] MEDS: MELATONIN 5 MG TABLET PO SCH (20:12)
[2021-01-02] MEDS ORDERED: ROPINIRole HCL 1 MG TABLET PO SCH (21:00)
[2021-01-02] MEDS ORDERED: ARIPiprazole 10 MG TABLET PO SCH (21:00)
[2021-01-02] MEDS: ZOLPIDEM TARTRATE 10 MG TABLET PO PRN (21:40)
[2021-01-03 01:23] VITALS: BP 109/68
[2021-01-03] MEDS: THIAMINE 100 MG TABLET PO SCH ×2 (08:39→16:29)
[2021-01-03] MEDS: FOLIC ACID 1 MG TABLET PO SCH (08:39)
[2021-01-03] MEDS: CHOLECALCIFEROL (VIT D3) 5,000 [125 MCG] UNITS CAPSULE PO SCH (08:39)
[2021-01-03] MEDS: MULTIVITAMINS WITH MINERALS, THERAPEUTIC TABLET PO SCH (08:39)
[2021-01-03] MEDS: OMEGA-3/DHA/EPA/FISH OIL 1,000 MG CAPSULE PO SCH (08:39)
[2021-01-03] MEDS: ACYCLOVIR 200 MG CAPSULE PO SCH ×2 (08:40→16:29)
[2021-01-03] MEDS: AMMONIUM LACTATE 12% 225 GM LOTION TP SCH ×2 (08:43→16:32)
[2021-01-03 09:04] VITALS: BP 114/68
[2021-01-03] MEDS ORDERED: ARIP10TA38 PO (14:20)
[2021-01-03] MEDS ORDERED: ROPI1TAB46 PO (14:20)
[2021-01-03] MEDS ORDERED: MELA5TAB3 PO (14:20)
[2021-01-03] MEDS ORDERED: OMEG-135 PO (14:20)
[2021-01-03 16:28] VITALS: BP 124/77
[2021-01-03] MEDS: MetFORMIN HCL 500 MG TABLET PO SCH (16:30)
[2021-01-03] MEDS ORDERED: METF-960 PO (17:13)
== END 2021-01-03 18:10 | disposition home or self-care (01) | DRG 753 ==
LOC: B3A 20:47 → B2S 12-31 21:19
PROVIDERS: ADMIT Psychiatry & Neurology Psychiatry; ATTEND Psychiatry & Neurology Psychiatry
DX: F31.9 Bipolar disorder, unspecified (principal); E11.9 Type 2 diabetes mellitus without complications; R45.851 Suicidal ideations; E73.9 Lactose intolerance, unspecified; G35 Multiple sclerosis; Z20.822 Contact with and (suspected) exposure to COVID-19; J45.909 Unspecified asthma, uncomplicated; Z59.9 Problem related to housing and economic circumstances, unspecified; Z91.14 Patient's other noncompliance with medication regimen
CPT/HCPCS: 80053; 80061; 82962; 83036; 84439; 84443; 84702; 85025; 86592; A9575

== ENCOUNTER 2021-06-27 14:15 | Outpatient (CLI) | payer MEDICAID ==
[~2021-06-27] VITALS: Ht 162.6 cm; Wt 88.0 kg
[~2021-06-27 14:15] MED LIST changes: +ACYC200C24 PO; +ARIP10TA38 PO; -DIVA-111 PO; -GABA-1181 PO; +MELA5TAB40 PO; +METF-1211 PO; +OMEG-108 PO; +ROPI1TAB46 PO
[2021-06-27 14:30] VITALS: BP 125/79
[2021-06-27] MEDS ORDERED: LORazepam 1 MG TABLET PO PRN (16:30)
[2021-06-27] MEDS ORDERED: HydrOXYzine PAMOATE 25 MG CAPSULE PO PRN (16:45)
[2021-06-27] MEDS ORDERED: GABAPENTIN 300 MG CAPSULE PO SCH (17:00)
[2021-06-27 17:11] LABS: GLUCOMETER DEV NAME(LOC) POC.BV
[2021-06-27 18:02] VITALS: BP 125/79
[2021-06-27 21:00] VITALS: BP 105/71
[2021-06-27] MEDS ORDERED: OXcarbazepine 300 MG TABLET PO SCH (21:00)
[2021-06-28] MEDS ORDERED: VENLAFAXINE HCL 150 MG ER CAPSULE PO SCH (09:00)
== END 2021-06-27 23:00 | disposition home or self-care (01) ==
LOC: CSU 14:15
PROVIDERS: ATTEND Psychiatry & Neurology Psychiatry
DX: F41.9 Anxiety disorder, unspecified (principal); F31.9 Bipolar disorder, unspecified; F60.3 Borderline personality disorder; F10.11 Alcohol abuse, in remission; F12.11 Cannabis abuse, in remission; F42.9 Obsessive-compulsive disorder, unspecified; Z20.822 Contact with and (suspected) exposure to COVID-19; Z88.8 Allergy status to other drugs, medicaments and biological substances
CPT/HCPCS: 90792; Z7610

== ENCOUNTER 2021-08-22 17:35 | Inpatient (IN) | payer MEDICAID ==
[~2021-08-22] VITALS: Ht 162.6 cm; Wt 87.5 kg
[2021-08-22 19:28] LABS: BASOPHILS % (AUTO) 0.1 % (0.0-2.0); EOSINOPHILS % (AUTO) 0 % (1.0-6.0); HEMATOCRIT 37.5 % (36-46); HEMOGLOBIN 12.6 g/dL (12.0-16.0); LYMPHOCYTES # (AUTO) 2.4 K/uL (1.0-4.8); LYMPHOCYTES % (AUTO) 38.7 % (22.0-44.0); MEAN CORPUSCULAR HEMOGLOBIN 29.9 pg (26.0-34.0); MEAN CORPUSCULAR HGB CONC 33.4 G/dL (31.0-37.0); MEAN CORPUSCULAR VOLUME 89 fL (80-100); MONOCYTES # (AUTO) 0.7 K/uL (0.1-1.0); MONOCYTES % (AUTO) 10.9 % (2.0-9.0); NEUTROPHILS # (AUTO) 3.1 K/uL (1.8-7.7); NEUTROPHILS % (AUTO) 50.3 % (40.0-70.0); PLATELET COUNT (AUTO) 363 K/uL (150-450); RED CELL DISTRIBUTION WIDTH 13.8 % (11.5-14.5)
[2021-08-22 19:38] LABS: ANION GAP 5 mmol/L (8-16); CALCIUM, TOTAL 8.7 mg/dL (8.8-10.5); CARBON DIOXIDE 29 mmol/L (22-29); CHLORIDE 103 mmol/L (98-107); CREATININE 0.67 mg/dL (0.60-1.30); GLOMERULAR FILTR. RATE CALC > 60 mL/min (>60); GLUCOSE,RANDOM 109 mg/dL (70-110); POTASSIUM 3.8 mmol/L (3.5-5.1); SODIUM SERUM 137 mmol/L (136-145); UREA NITROGEN, BLOOD 9 mg/dL (7-18)
[2021-08-22 19:50] LABS: ALANINE AMINOTRANSFERASE 13 U/L (12-78); ALBUMIN 3.5 g/dL (3.4-5.0); ALKALINE PHOSPHATASE 81 U/L (46-116); ASPARTATE AMINOTRANSFERASE 12 U/L (15-37); BILIRUBIN,TOTAL 0.1 mg/dL (0.1-1.0); HCG,QUANTITATIVE < 1 mIU/mL (0-6); TOTAL PROTEIN, SERUM 7.6 g/dL (6.4-8.2)
[2021-08-22 20:52] LABS: SALICYLATE 0.4 mg/dL (2.8-20.0)
[2021-08-22 20:57] LABS: ACETAMINOPHEN < 2 mcg/mL (10-30)
[2021-08-22] MEDS ORDERED: HYDR-4808 PO (21:04)
[2021-08-22] MEDS ORDERED: GABA-1181 PO (21:04)
[2021-08-22 21:09] LABS: AMPHET/METH SCREEN,URINE NEGATIVE (NEGATIVE); BARBITURATE SCREEN, URINE NEGATIVE (NEGATIVE); BENZODIAZEPINES SCREEN,URINE NEGATIVE (NEGATIVE); CANNABINOID SCREEN,URINE NEGATIVE (NEGATIVE); COCAINE SCREEN,URINE NEGATIVE (NEGATIVE); METHADONE SCREEN, URINE NEGATIVE (NEGATIVE); OPIATE SCREEN,URINE NEGATIVE (NEGATIVE)
[2021-08-22 21:10] LABS: PHENCYCLIDINE SCREEN,URINE NEGATIVE (NEGATIVE)
[2021-08-22] MEDS ORDERED: QUEtiapine FUMARATE 100 MG TABLET PO PRN (21:30)
[2021-08-22] MEDS ORDERED: ZOLPIDEM TARTRATE 10 MG TABLET PO PRN (21:30)
[2021-08-22] MEDS ORDERED: HALOPERIDOL 5 MG TABLET PO PRN (21:30)
[2021-08-22 21:34] LABS: APPEARANCE,URINE CLEAR (CLEAR); BILIRUBIN,URINE NEGATIVE (NEGATIVE); GLUCOSE, URINE (UA) NEGATIVE (NEGATIVE); KETONES,URINE NEGATIVE (NEGATIVE); LEUKOCYTE ESTERASE ,URINE NEGATIVE (NEGATIVE); NITRATE,URINE NEGATIVE (NEGATIVE); OCCULT BLOOD,URINE NEGATIVE (NEGATIVE); PH,URINE 6.5 (5.0-8.0); PROTEIN,URINE NEGATIVE (NEGATIVE); SPECIFIC GRAVITIY, URINE 1.008 (1.003-1.030); UROBILINOGEN,URINE <=1.0 mg/dL (<=1.0)
[2021-08-22 22:10] LABS: COVID AG,FIA SOURCE NASOPHARYNGEAL
[2021-08-23 03:53] VITALS: BP 105/67
[2021-08-23] MEDS ORDERED: INFLUENZA VIRUS VACCINE QVS 2021-22 (6MO+)/PF 60 MCG/0.5 ML SYRINGE IM. ONE (05:30)
[2021-08-23 07:12] LABS: CHOL/HDL RATIO 6.5 (3.9-5.7); CHOLESTEROL 228 mg/dL (131-200); FREE T4 (FREE THYROXINE) 0.81 ng/dL (0.76-1.46); HDL CHOLESTEROL 35 mg/dL (40-60); LDL CHOL (CALC.) 155 mg/dL (0-130); THYROID STIMULATING HORMONE 1.47 uIU/mL (0.36-3.74); TRIGLYCERIDES 191 mg/dL (15-150)
[2021-08-23 08:25] VITALS: BP 98/65
[2021-08-23] MEDS ORDERED: DOCUSATE SODIUM 100 MG CAPSULE PO PRN (09:15)
[2021-08-23] MEDS ORDERED: GuaiFENesin/D-METHORPHAN [SUGAR-FREE] 200-20MG/10 ML SYRUP UDCUP PO PRN (09:15)
[2021-08-23] MEDS ORDERED: PETROLATUM,WHITE 28 GM JELLY TP PRN (09:15)
[2021-08-23] MEDS ORDERED: ONDANSETRON HCL 4 MG TABLET PO PRN (09:15)
[2021-08-23] MEDS ORDERED: ALBUTEROL SULFATE HFA 90 MCG/PUFF 8 GM INHALER IH PRN (09:15)
[2021-08-23] MEDS ORDERED: CloNIDine HCL 0.1 MG TABLET PO PRN (09:15)
[2021-08-23] MEDS ORDERED: LOPERAMIDE HCL 2 MG CAPSULE PO PRN (09:15)
[2021-08-23] MEDS ORDERED: ACETAMINOPHEN 325 MG TABLET PO PRN (09:15)
[2021-08-23] MEDS ORDERED: MAGNESIUM HYDROXIDE SUSPENSION 30 ML UDCUP PO PRN (09:15)
[2021-08-23] MEDS ORDERED: IBUPROFEN 400 MG TABLET PO PRN (09:15)
[2021-08-23] MEDS ORDERED: NICOTINE 14 MG/24 HOUR PATCH TD PRN (09:15)
[2021-08-23] MEDS ORDERED: MAG HYDROX/AL HYDROX/SIMETH ES 30 ML SUSPENSION UDCUP PO PRN (09:15)
[2021-08-23] MEDS ORDERED: SERTRALINE HCL 50 MG TABLET PO SCH (10:15)
[2021-08-23 10:21] VITALS: BP 102/70
[2021-08-23] MEDS: GABAPENTIN 300 MG CAPSULE PO SCH ×3 (12:17→21:27)
[2021-08-23 13:05] VITALS: BP 98/63
[2021-08-23 16:15] VITALS: BP 108/63
[2021-08-23] MEDS: NITROFURANTOIN MACROCRYSTAL 100 MG CAPSULE PO SCH (21:30)
[2021-08-23] MEDS: ACYCLOVIR 200 MG CAPSULE PO SCH (21:30)
[2021-08-23] MEDS: AMANTADINE HCL 100 MG CAPSULE PO SCH (21:31)
[2021-08-23] MEDS: OXcarbazepine 300 MG TABLET PO SCH (21:33)
[2021-08-24 06:39] VITALS: BP 117/78
[2021-08-24] MEDS: NITROFURANTOIN MACROCRYSTAL 100 MG CAPSULE PO SCH ×2 (08:18→16:13)
[2021-08-24] MEDS: VENLAFAXINE HCL 150 MG ER CAPSULE PO SCH (08:18)
[2021-08-24] MEDS: AMANTADINE HCL 100 MG CAPSULE PO SCH (08:18)
[2021-08-24] MEDS: OMEGA-3/DHA/EPA/FISH OIL 1,000 MG CAPSULE PO SCH (08:19)
[2021-08-24] MEDS: ACYCLOVIR 200 MG CAPSULE PO SCH ×2 (08:19→16:13)
[2021-08-24] MEDS: GABAPENTIN 300 MG CAPSULE PO SCH ×4 (08:19→20:03)
[2021-08-24 08:31] VITALS: BP 110/73
[2021-08-24 16:12] VITALS: BP 112/71
[2021-08-24] MEDS: OXcarbazepine 300 MG TABLET PO SCH (20:03)
[2021-08-25 01:06] VITALS: BP 109/65
[2021-08-25 08:26] VITALS: BP 111/69
[2021-08-25] MEDS: NITROFURANTOIN MACROCRYSTAL 100 MG CAPSULE PO SCH ×2 (08:46→16:29)
[2021-08-25] MEDS: OMEGA-3/DHA/EPA/FISH OIL 1,000 MG CAPSULE PO SCH (08:46)
[2021-08-25] MEDS: ACYCLOVIR 200 MG CAPSULE PO SCH ×2 (08:46→16:29)
[2021-08-25] MEDS: VENLAFAXINE HCL 150 MG ER CAPSULE PO SCH (08:46)
[2021-08-25] MEDS: GABAPENTIN 300 MG CAPSULE PO SCH ×4 (08:47→20:24)
[2021-08-25] MEDS: AMANTADINE HCL 100 MG CAPSULE PO SCH (08:47)
[2021-08-25 16:16] VITALS: BP 143/85
[2021-08-25] MEDS: OXcarbazepine 300 MG TABLET PO SCH (20:25)
[2021-08-26 01:02] VITALS: BP 115/79
[2021-08-26 08:08] VITALS: BP 105/66
[2021-08-26] MEDS: AMANTADINE HCL 100 MG CAPSULE PO SCH (08:27)
[2021-08-26] MEDS: NITROFURANTOIN MACROCRYSTAL 100 MG CAPSULE PO SCH ×2 (08:27→16:47)
[2021-08-26] MEDS: OMEGA-3/DHA/EPA/FISH OIL 1,000 MG CAPSULE PO SCH (08:28)
[2021-08-26] MEDS: VENLAFAXINE HCL 150 MG ER CAPSULE PO SCH (08:28)
[2021-08-26] MEDS: GABAPENTIN 300 MG CAPSULE PO SCH ×4 (08:28→20:17)
[2021-08-26] MEDS: ACYCLOVIR 200 MG CAPSULE PO SCH ×2 (08:28→16:47)
[2021-08-26 16:18] VITALS: BP 123/76
[2021-08-26] MEDS: OXcarbazepine 300 MG TABLET PO SCH (20:17)
[2021-08-27 00:20] VITALS: BP 121/77
[2021-08-27 07:56] LABS: GLUCOMETER DEV NAME(LOC) POC.BV
[2021-08-27 08:23] VITALS: BP 102/62
[2021-08-27] MEDS: VENLAFAXINE HCL 150 MG ER CAPSULE PO SCH (08:34)
[2021-08-27] MEDS: AMANTADINE HCL 100 MG CAPSULE PO SCH (08:34)
[2021-08-27] MEDS: OMEGA-3/DHA/EPA/FISH OIL 1,000 MG CAPSULE PO SCH (08:34)
[2021-08-27] MEDS: NITROFURANTOIN MACROCRYSTAL 100 MG CAPSULE PO SCH (08:34)
[2021-08-27] MEDS: GABAPENTIN 300 MG CAPSULE PO SCH ×2 (08:34→12:30)
[2021-08-27] MEDS: ACYCLOVIR 200 MG CAPSULE PO SCH (08:34)
[2021-08-27] MEDS ORDERED: VENL150C2 PO (12:24)
[2021-08-27] MEDS ORDERED: GABA-1181 PO (12:24)
[2021-08-27] MEDS ORDERED: ACYC200C24 PO (12:37)
[2021-08-27] MEDS ORDERED: NITR-103 PO (12:37)
== END 2021-08-27 15:35 | disposition home or self-care (01) | DRG 753 ==
LOC: EMS 17:40 → B2S 08-23 00:18
PROVIDERS: ADMIT Psychiatry & Neurology Psychiatry; ATTEND Psychiatry & Neurology Psychiatry
DX: F31.4 Bipolar disorder, current episode depressed, severe, without psychotic features (principal); E11.9 Type 2 diabetes mellitus without complications; E66.9 Obesity, unspecified; E78.5 Hyperlipidemia, unspecified; F60.3 Borderline personality disorder; J45.909 Unspecified asthma, uncomplicated; F41.9 Anxiety disorder, unspecified; T43.595A Adverse effect of other antipsychotics and neuroleptics, initial encounter; Z20.822 Contact with and (suspected) exposure to COVID-19; Z88.8 Allergy status to other drugs, medicaments and biological substances; Z91.51 Personal history of suicidal behavior; Z79.899 Other long term (current) drug therapy; Z91.011 Allergy to milk products; Y92.89 Other specified places as the place of occurrence of the external cause; Z59.00 Homelessness unspecified; Z59.02 Unsheltered homelessness; Z68.33 Body mass index [BMI] 33.0-33.9, adult; Z79.84 Long term (current) use of oral hypoglycemic drugs; Z28.21 Immunization not carried out because of patient refusal
CPT/HCPCS: 80053; 80061; 81003; 83036; 84439; 84443; 84702; 85025; 93005; 99285; G0480; G0481